=== PATIENT | male | born 1975 | race Caucasian/White ===

== ENCOUNTER 2024-02-02 10:19 | Emergency (ER) | payer OTHER ==
[2024-02-02] MEDS: Lidocaine 1% 5 ML VIAL INJECT STA (11:06)
[2024-02-02] MEDS: Diphtheria,Pertussis(Acell),Tetanus Vaccine 0.5 ML Syringe IM ONE (11:13)
== END 2024-02-02 12:15 | disposition home or self-care (01) ==
LOC: MW.ED 10:19 → MERGE 10:19 → MW.ED 12:15
DX: S61.211A Laceration without foreign body of left index finger without damage to nail, initial encounter (principal); F17.210 Nicotine dependence, cigarettes, uncomplicated; Z75.8 Other problems related to medical facilities and other health care; W27.0XXA Contact with workbench tool, initial encounter
CPT/HCPCS: 12001; 90471; 90715; 99282-25; J3490

== ENCOUNTER 2024-04-22 18:06 | Emergency (ER) | payer OTHER ==
[2024-04-22] MEDS: Ketorolac 30 MG/ML SDV IM ONE (18:39)
== END 2024-04-22 19:15 | disposition home or self-care (01) ==
LOC: MW.ED 18:06
DX: M54.50 Low back pain, unspecified (principal); F17.210 Nicotine dependence, cigarettes, uncomplicated; Z75.8 Other problems related to medical facilities and other health care
CPT/HCPCS: 96372; 99283; J1885

== ENCOUNTER 2024-11-10 11:29 | Emergency (ER) | payer OTHER | END 2024-11-10 12:56 | disposition home or self-care (01) | LOC: MW.ED 11:29 | DX: S33.5XXA Sprain of ligaments of lumbar spine, initial encounter (principal); F17.200 Nicotine dependence, unspecified, uncomplicated; X50.1XXA Overexertion from prolonged static or awkward postures, initial encounter | CPT/HCPCS: 99282; 99283 ==